=== PATIENT | female | born 1980 | race Caucasian/White ===

== ENCOUNTER 2016-12-26 07:29 | Emergency (ER) | payer OTHER ==
[~2016-12-26] VITALS: Ht 167.6 cm; Wt 73.3 kg
[~2016-12-26 07:29] MED LIST: BUSP-8 PO; CIPR-255 PO; LEVO125T72 PO; MIGRAINE MEDS; ONDA4TAB7 SL; PANT40TA PO; SUMA6KIT; THYROID MED; TOPI25TA55 PO
[2016-12-26 07:31] VITALS: TEMP 36.3; Ht 167.6 cm; Wt 73.3 kg
[2016-12-26] MEDS ORDERED: ONDANSETRON INJ 2 MG/ML 2 ML VIAL IV STA ×2 (07:46→09:43)
[2016-12-26] MEDS ORDERED: KETOROLAC TROMETHAMINE 30 MG/ML VIAL IV STA (07:53)
[2016-12-26] MEDS ORDERED: PANT40TA PO (08:10)
[2016-12-26] MEDS ORDERED: AZEL30SP NAE (08:10)
[2016-12-26] MEDS ORDERED: AMOX875T PO (08:10)
[2016-12-26] MEDS ORDERED: GABA-113 PO (08:10)
[2016-12-26] MEDS ORDERED: CLON1TAB3 PO ×2 (08:10)
[2016-12-26] MEDS ORDERED: IPRA1AER2 INH (08:10)
[2016-12-26] MEDS ORDERED: FLUT0.15 NAE (08:10)
[2016-12-26] MEDS ORDERED: SERT50TA PO (08:10)
[2016-12-26] MEDS ORDERED: GABA-112 PO (08:10)
[2016-12-26] MEDS ORDERED: LEVO150T9 PO (08:10)
[2016-12-26 08:18] LABS: BASO % 0.2 %; BASO ABS # 0.03 K/uL (0-0.2); COMPLETE YES; EOS % 0.5 %; IG% 0.3 %; LYMPH % 10.8 %; LYMPH ABS # 1.81 K/uL (1.2-3.4); MEAN CELL VOLUME 86.7 fL (80-100); MEAN CORPUSCULAR HEMOGLOBIN 28.4 pg (25-34); MEAN CORPUSCULAR HGB CONC 32.8 g/dl (32-36); MONO % 6.9 %; NEUT % 81.3 %; PLATELET COUNT 316 K/uL (130-400); WHITE BLOOD COUNT 16.81 K/uL (4.8-10.8)
[2016-12-26 08:23] LABS: BUN/CREATININE RATIO 18.2 (10-20); CALCIUM 8.4 mg/dl (8.5-10.1); CREATININE 0.9 mg/dl (0.60-1.20); MAGNESIUM 1.9 mg/dl (1.8-2.4); POTASSIUM 3.4 mmol/L (3.5-5.1)
[2016-12-26] MEDS ORDERED: SODIUM CHLORIDE 0.9% 1000ML 2,000 ML IV STA (08:25)
--- NOTE | 2016-12-26 08:33 | EMERGENCY ROOM VISIT NOTE ---
History Report prepared by Ac: Ange Lundberg Under the Supervision of: Dr. Imani Sam M.D. First contact with patient: 07:39 Chief Complaint: VOMITING Stated Complaint: VOMITING Nursing Triage Summary: Patient reports she awoke with a headache states the headache has gone away but now has n/v. Patient is sticking her fingers down her throat while I am talking to her. Patient states she was at [facility] for the same a couple months ago. History of Present Illness The patient is a 36 year old female who presents to the Emergency Room with complaints of persistent nausea and vomiting that started this morning when she woke up, around 0500. Currently the patient is dry heaving. She is also experiencing epigastric abdominal pain. She is unsure of if she is experiencing a fever, but states that it feels like she has one. She denies hematemesis and diarrhea. The patient experienced similar symptoms a couple months ago and nothing abnormal was found in the patient's work-up with the exception of hypomagnesia and hypokalemia. The patient denies any chance of . Source of History: patient Onset: this morning when she woke up, around 0500 Position: abdomen Quality: other (nausea and vomiting) Timing: other (persistent) Associated Symptoms: + abdominal pain (epigastric), No diarrhea Note: no hematemesis Review of Systems See HPI for pertinent positives & negatives. A total of 10 systems reviewed and were otherwise negative. Past Medical & Surgical Medical Problems: (1) Unspecified disorder of thyroid Family History No pertinent family history Social History Smoking Status: Former Smoker Marital Status: single Occupation Status: unemployed Current/Historical Medications Scheduled Amoxicillin & Pot Clavulanate (Augmentin 875-125 mg), 1 TAB PO BID Azelastine Hcl-Fluticasone Pro (Dymista), 2 SPRY JALIL BID Clonazepam (Klonopin), 0.5 MG PO QAM Clonazepam (Klonopin), 1 MG PO HS Fluticasone Propionate (Nasal) (Flonase Allergy Relief), 2 SPRAYS JALIL DAILY Gabapentin (Neurontin), 100 MG PO HS Gabapentin (Neurontin), 300 MG PO QID Levothyroxine Sodium (Levothyroxine Sodium), 1 TAB PO QAM Pantoprazole (Protonix), 40 MG PO BID Sertraline (Zoloft), 50 MG PO QAM Scheduled PRN Ipratropium-Albuterol (Combivent Respimat), 1 PUFFS INH QID PRN for SOB/Wheezing Promethazine (Phenergan Suppository), 25 MG SC Q6H PRN for Nausea Allergies Coded Allergies: Bupropion (Unverified Allergy, Intermediate, HEADACHE, VOMITING, 12/26/16) Codeine (Unverified Allergy, Intermediate, HEADACHE, VOMITING, 12/26/16) Physical Exam Vital Signs Date Time Temp Pulse Resp B/P (MAP) Pulse Ox O2 Delivery O2 Flow Rate FiO2 12/26/16 10:54 59 18 128/71 100 12/26/16 09:17 54 20 122/73 100 Room Air 12/26/16 08:05 49 16 99/80 98 Room Air 12/26/16 07:31 36.3 70 20 111/94 100 Room Air Physical Exam Vital signs reviewed. General: Well-appearing female, in no significant distress. HEENT: No scleral icterus, PERRLA, neck supple. Atraumatic. Cardiovascular: Regular rate and rhythm, no extra sounds. Pulmonary: Clear to auscultation bilaterally, normal work of breathing. Abdomen: Soft, nontender, nondistended, positive bowel sounds. Musculoskeletal: Atraumatic, no peripheral edema. Neurologic: Patient awake alert and oriented x 3, full strength in all 4 extremities. Cranial nerves 2 through 12 grossly intact. Skin: Warm, dry, no rash Medical Decision & Procedures ER Provider Diagnostic Interpretation: Radiology results as stated below per my review and radiologist interpretation: PA CHEST WITH ABDOMINAL SERIES FINDINGS: A PA chest radiograph is obtained. No prior studies are available for comparison at the time of dictation. The cardiomediastinal silhouette is unremarkable. The lungs and pleural spaces are clear. No pneumothorax is seen. The bony thorax is grossly intact. Supine and decubitus abdominal radiographs are obtained. No prior studies are available for comparison at the time of dictation. There is a nonobstructed abdominal bowel gas pattern. No evidence of intraperitoneal free air is seen. There are no abnormal abdominal calcifications. The lumbosacral spine and bony pelvis appear intact. IMPRESSION: 1. No active disease in the chest. 2. Unremarkable abdominal radiographs. Electronically signed by: Mulugeta Colunga M.D. 12/26/2016 9:08 AM Dictated Date/Time: 12/26/2016 9:06 AM Laboratory Results 12/26/16 07:50 Red Blood Count 4.50, Mean Corpuscular Volume 86.7, Mean Corpuscular Hemoglobin 28.4, Mean Corpuscular Hemoglobin Concent 32.8, Mean Platelet Volume 9.0, Neutrophils (%) (Auto) 81.3, Lymphocytes (%) (Auto) 10.8, Monocytes (%) (Auto) 6.9, Eosinophils (%) (Auto) 0.5, Basophils (%) (Auto) 0.2, Neutrophils # (Auto) 13.67, Lymphocytes # (Auto) 1.81, Monocytes # (Auto) 1.16, Eosinophils # (Auto) 0.09, Basophils # (Auto) 0.03 12/26/16 07:50 Test 12/26/16 07:50 12/26/16 09:20 White Blood Count 16.81 K/uL (4.8-10.8) Red Blood Count 4.50 M/uL (4.2-5.4) Hemoglobin 12.8 g/dL (12.0-16.0) Hematocrit 39.0 % (37-47) Mean Corpuscular Volume 86.7 fL (80-100) Mean Corpuscular Hemoglobin 28.4 pg (25-34) Mean Corpuscular Hemoglobin Concent 32.8 g/dl (32-36) Platelet Count 316 K/uL (130-400) Mean Platelet Volume 9.0 fL (7.4-10.4) Neutrophils (%) (Auto) 81.3 % Lymphocytes (%) (Auto) 10.8 % Monocytes (%) (Auto) 6.9 % Eosinophils (%) (Auto) 0.5 % Basophils (%) (Auto) 0.2 % Neutrophils # (Auto) 13.67 K/uL (1.4-6.5) Lymphocytes # (Auto) 1.81 K/uL (1.2-3.4) Monocytes # (Auto) 1.16 K/uL (0.11-0.59) Eosinophils # (Auto) 0.09 K/uL (0-0.5) Basophils # (Auto) 0.03 K/uL (0-0.2) RDW Standard Deviation 42.4 fL (36.4-46.3) RDW Coefficient of Variation 13.2 % (11.5-14.5) Immature Granulocyte % (Auto) 0.3 % Immature Granulocyte # (Auto) 0.05 K/uL (0.00-0.02) Anion Gap 10.0 mmol/L (3-11) Est Creatinine Clear Calc Drug Dose 87.7 ml/min Estimated GFR () 94.7 Estimated GFR (Non- 81.7 BUN/Creatinine Ratio 18.2 (10-20) Calcium Level 8.4 mg/dl (8.5-10.1) Magnesium Level 1.9 mg/dl (1.8-2.4) Total Bilirubin 0.6 mg/dl (0.2-1) Direct Bilirubin 0.1 mg/dl (0-0.2) Aspartate Amino Transf (AST/SGOT) 25 U/L (15-37) Alanine Aminotransferase (ALT/SGPT) 31 U/L (12-78) Alkaline Phosphatase 55 U/L (45-117) Total Protein 7.0 gm/dl (6.4-8.2) Albumin 3.6 gm/dl (3.4-5.0) Lipase 172 U/L (73-393) Urine Color DK YELLOW Urine Appearance CLOUDY (CLEAR) Urine pH >= 9.0 (4.5-7.5) Urine Specific [place] 1.030 (1.000-1.030) Urine Protein NEG (NEG) Urine Glucose (UA) TRACE (NEG) Urine Ketones 1+ (NEG) Urine Occult Blood NEG (NEG) Urine Nitrite NEG (NEG) Urine Bilirubin NEG (NEG) Urine Urobilinogen NEG (NEG) Urine Leukocyte Esterase NEG (NEG) Urine WBC (Auto) 1-5 /hpf (0-5) Urine RBC (Auto) 0-4 /hpf (0-4) Urine Hyaline Casts (Auto) 1-5 /lpf (0-5) Urine Epithelial Cells (Auto) >30 /lpf (0-5) Urine Bacteria (Auto) NEG (NEG) Urine Renal Epithelial Cells /lpf (0-5) Urine Pathogenic Casts /lpf (0) Urine Mucus PRESENT (NONE PRSENT) Urine Test NEG (NEG) Laboratory results per my review. Medications Administered Medications (Trade) Dose Ordered Sig/Crystal Route Start Time Stop Time Status Last Admin Dose Admin Ondansetron HCl (Zofran Inj) 4 mg NOW STAT IV 12/26/16 07:46 12/26/16 07:48 DC 12/26/16 07:58 4 MG Ketorolac Tromethamine (Toradol Inj) 30 mg NOW STAT IV 12/26/16 07:53 12/26/16 07:55 DC 12/26/16 07:58 30 MG Sodium Chloride 2,000 ml @ 999 mls/hr Q2H1M STAT IV 12/26/16 08:25 12/26/16 10:25 DC 12/26/16 09:42 999 MLS/HR Ondansetron HCl (Zofran Inj) 4 mg NOW STAT IV 12/26/16 09:43 12/26/16 09:45 DC 12/26/16 09:48 4 MG ED Course 0746: Ordered Zofran Inj 4 mg IV 0753: Past medical records reviewed. The patient was evaluated in room B10. A complete history and physical examination was performed. Ordered Toradol Inj 30 mg IV 0825: Ordered Sodium Chloride 2000 ml @ 999 mls/hr IV 0943: Ordered Zofran Inj 4 mg IV 1022: Upon reevaluation, the patient appeared to have improvement of her symptoms. I discussed findings with her. She verbalized agreement of the treatment plan. She was discharged home. 1024: Ordered Promethazine HCl 25 mg SC Medical Decision Differentials include gastroenteritis, food borne illness, infections, appendicitis, diverticulitis, inflammatory bowel disease, obstruction, GI bleed , biliary pathology. Medication Reconciliation: I attest that I have personally reviewed the patient' s current medication list. Blood Pressure Screening: Patient was found to have normal blood pressure on screening and does not require follow-up. This pt was evaluated and appeared to be in no distress. IV access was obtained and lab work was drawn. Pt was hydrated with NSS, given IV zofran and toradol. Abd XR series is negative for FA or obstruction. Pt was feeling nauseated again and given additional IV zofran. Lab work was reviewed. WBC is likely reactive secondary to vomiting. Pt was d/c with phenergan supp Rx. She will drink plenty of clear fluids and advance diet slowly as tolerated. She will f/ u with PCP and return to the ED for worsening of symptoms or any medical concerns. Impression Primary Impression: Nausea and vomiting Scribe Attestation The scribe's documentation has been prepared under my direction and personally reviewed by me in its entirety. I confirm that the note above accurately reflects all work, treatment, procedures, and medical decision making performed by me. Departure Information Dispostion Home / Self-Care Prescriptions Promethazine (Phenergan Suppository) 25 Mg Supp 25 MG SC Q6H Y for Nausea, #10 SUPP Prov: Imani Sam M.D. 12/26/16 Referrals No Doctor, Assigned (PCP) Forms HOME CARE DOCUMENTATION FORM, IMPORTANT VISIT INFORMATION Patient Instructions My [facility] Additional Instructions Diagnosis: Nausea, vomiting, diarrhea Phenergan 25 mg supp every 6 hours as needed for nausea. Drink plenty of fluids. Advance diet slowly as tolerated, avoid greasy, spicy foods. Avoid ibuprofen, aleve and aspirin. Follow up with your doctor this week for reevaluation. Return to the ED for worsening of symptoms or any medical concerns. Problem Qualifiers Primary Impression: Nausea and vomiting Vomiting type: unspecified Vomiting Intractability: non-intractable Qualified Codes: R11.2 - Nausea with vomiting, unspecified
--- NOTE | 2016-12-26 09:09 | DIAGNOSTIC IMAGING REPORT ---
PA CHEST WITH ABDOMINAL SERIES CLINICAL HISTORY: Vomiting and constipation. FINDINGS: A PA chest radiograph is obtained. No prior studies are available for comparison at the time of dictation. The cardiomediastinal silhouette is unremarkable. The lungs and pleural spaces are clear. No pneumothorax is seen. The bony thorax is grossly intact. Supine and decubitus abdominal radiographs are obtained. No prior studies are available for comparison at the time of dictation. There is a nonobstructed abdominal bowel gas pattern. No evidence of intraperitoneal free air is seen. There are no abnormal abdominal calcifications. The lumbosacral spine and bony pelvis appear intact. IMPRESSION: 1. No active disease in the chest. 2. Unremarkable abdominal radiographs. Electronically signed by: Mulugeta Colunga M.D. 12/26/2016 9:08 AM Dictated Date/Time: 12/26/2016 9:06 AM
[2016-12-26 09:33] LABS: URINE APPEARANCE CLOUDY (CLEAR); URINE COLOR DK YELLOW; URINE EPITHELIAL CELL AUTO >30 /lpf (0-5); URINE NITRITE NEG (NEG); URINE PH >= 9.0 (4.5-7.5); UROBILINOGEN NEG (NEG); ZZUR CULT IF INDIC CLEAN CATCH NO
[2016-12-26 10:02] LABS: MANUAL MICROSCOPIC REQUIRED? NO; REVIEW REQ? YES
[2016-12-26 10:03] LABS: SULFASALICYLIC ACID NEG (NEG); URINE BILIRUBIN NEG (NEG)
[2016-12-26 10:13] LABS: URINE MUCUS PRESENT (NONE PRSENT)
[2016-12-26] MEDS ORDERED: PROMETHAZINE HCL 25 MG SUPP PR STA (10:24)
[2016-12-26] MEDS ORDERED: PROM1SUP19 PR (10:27)
[2016-12-26 10:54] VITALS: BP 128/71; PULSE 59; O2SAT 100
== END 2016-12-26 10:50 | disposition home or self-care (01) ==
LOC: MERGE 07:32 → C.EDB 07:32
DX: R11.2 Nausea with vomiting, unspecified (principal); E07.9 Disorder of thyroid, unspecified; Z87.891 Personal history of nicotine dependence; Z79.899 Other long term (current) drug therapy